=== PATIENT | male | born 1995 | race African-American/Black ===

== ENCOUNTER 2020-01-06 00:31 | Emergency (ER) | payer SELFPAY ==
[2020-01-06 01:19] VITALS: BP 125/63; PULSE 69; TEMP 99.2; BMI 20.9
[2020-01-06] MEDS ORDERED: DIPHTH,PERTUSS(ACELL),TET 0.5 ML DISP.SYRIN IM ONE ×2 (01:52→02:06)
[2020-01-06] MEDS ORDERED: BACITRACIN 15 GM TUBE TOPICAL OINTMENT TP ONE (01:57)
--- NOTE | 2020-01-06 01:57 | PDOC ---
History of Present Illness - General Chief Complaint: Laceration Stated Complaint: HAND INJURY Time Seen by Provider: 01/06/20 01:10 History Source: Patient Exam Limitations: No Limitations - History of Present Illness Initial Comments: 01/06/20 01:53 HISTORY OF PRESENT ILLNESS: 24-year-old [id number] male presents emergency department for evaluation of laceration to the right palm which occurred on the evening of 01/03. Patient reports he was climbing over a chain link fence when he scraped his hand on the top of the fence. Patient has washed his hands multiple times since the initial injury. Patient is unsure of his last tetanus shot. No recent travel or sick contacts. PAST MEDICAL HISTORY: Denies past medical history SURGICAL HISTORY: Denies ALLERGIES: No known drug allergies REVIEW OF SYSTEMS General/Constitutional: Denies fever or chills. Denies weakness, weight change. HEENT: Denies change in vision. Denies ear pain or discharge. Denies sore thr oat. Cardiovascular: Denies chest pain or shortness of breath. Respiratory: Denies cough, wheezing, or hemoptysis. Gastrointestinal: Denies nausea, vomiting, diarrhea or constipation. Denies rectal bleeding. Genitourinary: Denies dysuria, frequency, or change in urination. Musculoskeletal: Denies joint or muscle swelling or pain. Denies neck or back pain. Skin and breasts: See HPI Neurologic: Denies headache, vertigo, loss of consciousness, or loss of sensation. Psychiatric: Denies depression or anxiety. Endocrine: Denies increased thirst. Denies abnormal weight change. Hematologic/Lymphatic: Denies anemia, easy bleeding, or history of blood clots. Allergic/Immunologic: Denies hives or skin allergy. Denies latex allergy. PHYSICAL EXAM General Appearance: Well-appearing, appropriately dressed. No apparent distress, no intoxication. Musculoskeletal/Extremities: Laceration present to the right palm. Full flexion and extension of all digits against resistance without difficulty. Neur ovascularly intact. Integumentary: Approximate 6 cm jagged laceration present to the right palmar surface extending from the interdigital space between index and middle fingers proximally ending in the hypothenar space. Past History - Medical History Allergies/Adverse Reactions: Allergies Allergy/AdvReac Type Severity Reaction Status Date / Time No Known Allergies Allergy Verified 01/06/20 01:19 Home Medications: Ambulatory Orders Methylphenidate HCl [Concerta] 54 mg PO DAILY 08/01/13 Psychiatric Problems: Yes - Immunization History Immunization Up to Date: Yes - Psycho-Social/Smoking History Smoking History: Never smoked Have you smoked in the past 12 months: No Information on smoking cessation initiated: No - Substance Abuse Hx (Audit-C & DAST Scrn) How often the patient has a drink containing alcohol: Monthly or less Number of drinks the patient has on a typical day: 1 or 2 How often the patient has six or more drinks on one occasion: Never Score: In Men: 4 or > Positive; In Women: 3 or > Positive: 1 Screen Result (Pos requires Nsg. Audit-10AR): Negative In the last yr the pt used illegal drug/Rx for NonMed reason: No Score: Yes response is considered Positive: 0 Screen Result (Positive result requires Nsg. DAST-10): Negative *Physical Exam - Vital Signs Last Vital Signs Temp Pulse Resp BP Pulse Ox 99.2 F 69 18 125/63 97 01/06/20 00:35 01/06/20 00:35 01/06/20 00:35 01/06/20 00:35 01/06/20 00:35 Medical Decision Making - Medical Decision Making 01/06/20 01:55 A/P: 24-year-old male with right palm laceration for greater than 24 hours Given the length of time since initial injury will allow to close via secondary intention. Wound irrigation Bacitracin Dry sterile dressing Boostrix Discharge home with hand follow-up I discussed the physical exam findings, ancillary test results and final diagnoses with the patient. I answered all of the patient's questions. The patient was satisfied with the care received and felt comfortable with the discharge plan and treatment plan. The patient will call their primary care physician within 24 hours to arrange follow-up and will return to the Emergency Department with any new, persistent or worsening symptoms. Portions of this note have been documented using voice recognition software. As a result, errors may occur in the production support engineer process. Effort has been made to correct all grammatical and production support engineer error, but some may have been missed which may produce sporadic inaccurate production support engineer or nonsensical phrases. 01/06/20 01:57 Discharge - Discharge Information Problems reviewed: Yes Clinical Impression/Diagnosis: Laceration of right palm Qualifiers: Encounter type: initial encounter Qualified Code(s): S61.411A - Laceration without foreign body of right hand, initial encounter Condition: Fair Disposition: HOME - Admission No - Follow up/Referral Referrals: Manuelito Wilson MD [Staff Physician] - - Patient Discharge Instructions Additional Instructions: [email or web address] Keep wound clean and dry Avoid strenuous activity/exercise to create a hot or sweaty environment until sutures are removed Reapply bacitracin ointment 2 times a day until sutures are removed Schedule an appointment to follow-up with orthopedics for continued evaluation of your wound. May use Tylenol or Motrin for pain relief Return immediately to emergency department for redness, swelling, pain, or signs of infection - Post Discharge Activity
--- NOTE | 2020-01-06 02:00 | PDOC ---
*Physical Exam - Vital Signs Last Vital Signs Temp Pulse Resp BP Pulse Ox 99.2 F 69 18 125/63 97 01/06/20 00:35 01/06/20 00:35 01/06/20 00:35 01/06/20 00:35 01/06/20 00:35 Medical Decision Making - Medical Decision Making 01/06/20 02:00 Patient seen by the advanced practice provider under my supervision. Ancillary testing reviewed as necessary. I agree with plan as outlined by the advanced practice provider. Discharge - Discharge Information Problems reviewed: Yes Clinical Impression/Diagnosis: Laceration of right palm Qualifiers: Encounter type: initial encounter Qualified Code(s): S61.411A - Laceration without foreign body of right hand, initial encounter Condition: Fair Disposition: HOME - Follow up/Referral Referrals: Manuelito Wilson MD [Staff Physician] - - Patient Discharge Instructions Additional Instructions: [email or web address] Keep wound clean and dry Avoid strenuous activity/exercise to create a hot or sweaty environment until sutures are removed Reapply bacitracin ointment 2 times a day until sutures are removed Schedule an appointment to follow-up with orthopedics for continued evaluation of your wound. May use Tylenol or Motrin for pain relief Return immediately to emergency department for redness, swelling, pain, or signs of infection - Post Discharge Activity
[2020-01-06] MEDS ORDERED: BACITRACIN 0.9 GM PACKET ONE (02:06)
== END 2020-01-06 04:52 | disposition home or self-care (01) ==
LOC: JER 00:31
PROC: 3E0234Z Introduction of Serum, Toxoid and Vaccine into Muscle, Percutaneous Approach (ICD-10-PCS; principal; 2020-01-06)
DX: S61.411A Laceration without foreign body of right hand, initial encounter (principal)
CPT/HCPCS: 90715; 99284-25